=== PATIENT | female | born 1975 | race Asian ===

== ENCOUNTER 2017-05-07 00:55 | Inpatient (IN) | payer BC ==
[~2017-05-07] VITALS: Ht 170.2 cm; Wt 81.6 kg
[2017-05-07] MEDS ORDERED: LR 1,000 ML IV ONE ×2 (02:08→03:06)
[2017-05-07] MEDS ORDERED: CEFAZOLIN 2 GM IVPB PREMIX 50 ML IV ONE ×2 (02:15→02:16)
[2017-05-07] MEDS ORDERED: BUPIVACAINE /DEX PF 0.75% SPINAL 2 ML AMP INJ ONE (02:16)
[2017-05-07] MEDS ORDERED: DEXAMETHASONE SOD PHOSPHATE 4 MG/ML VIAL IVP ONE (02:16)
[2017-05-07] MEDS ORDERED: MORPHINE SULFATE 10MG/10ML PF AMP EP ONE (02:16)
[2017-05-07] MEDS ORDERED: MIDAZOLAM HCL 5 MG/5 ML VIAL IVP ONE (02:16)
[2017-05-07] MEDS ORDERED: METOCLOPRAMIDE HCL 10 MG/2 ML VIAL IVP ONE (02:16)
[2017-05-07] MEDS ORDERED: fentaNYL CITRATE 250 MCG/5 ML AMP IV ONE (02:16)
[2017-05-07] MEDS ORDERED: ceFAZolin SODIUM 1 GM VIAL ONE (02:27)
[2017-05-07 02:34] LABS: HEMATOCRIT 34.8 % (36-48); HEMOGLOBIN 10.7 g/dL (12.0-16.0); MEAN CORPUSCULAR HEMOGLOBIN 21 pg (27-31); MEAN CORPUSCULAR HGB CONC 31 % (32-36); MEAN CORPUSCULAR VOLUME 67 fL (79.0-98.0); PLATELET COUNT (AUTO) 281 K/uL (130-430); RED BLOOD CELL COUNT(AUTO) 5.18 MIL/uL (4.2-6.2); WHITE BLOOD COUNT (AUTO) 8.8 K/uL (4.8-10.8)
[2017-05-07] MEDS ORDERED: OXYTOCIN 10 UNIT/ML VIAL ONE (02:55)
[2017-05-07 03:06] LABS: ATYPICAL LYMPHOCYTES % 0 % (0-0); BAND % (MANUAL) 3 % (0-6); BASOPHILS % (MANUAL) 0 % (0-2); EOSINOPHILS % (MANUAL) 1 % (0-7); LYMPHOCYTES % (MANUAL) 13 % (20-46); MONOCYTES % (MANUAL) 8 % (0-11)
[2017-05-07] MEDS ORDERED: NALOXONE HCL 0.4 MG/ML AMP (NARCAN) IVP PRN (03:15)
[2017-05-07] MEDS ORDERED: KETOROLAC TROMETHAMINE 30 MG VIAL IM PRN (03:15)
[2017-05-07] MEDS ORDERED: DIPHENHYDRAMINE INJ 50 MG/ML VIAL IVP PRN (03:15)
[2017-05-07] MEDS ORDERED: ONDANSETRON HCL 4 MG/2 ML VIAL IVP PRN ×2 (03:15)
[2017-05-07] MEDS ORDERED: ePHEDrine sulfate 50 MG/ML VIAL IVP PRN (03:15)
[2017-05-07] MEDS ORDERED: NALBUPHINE HCL 10 MG/ML AMP IVP PRN (03:15)
[2017-05-07] MEDS ORDERED: fentaNYL CITRATE/PF 100 MCG/2 ML AMP IVP PRN (03:15)
[2017-05-07] MEDS ORDERED: OXYTOCIN/NORMAL SALINE 1,000 ML IV ONE (04:31)
[2017-05-07 07:30] VITALS: BP_SYST 125
[2017-05-07] MEDS ORDERED: OXYCODONE/ACETAMINOPHEN 5-325 TABLET PO PRN ×2 (17:15)
[2017-05-08] MEDS: IBUPROFEN 600 MG TABLET PO PRN ×4 (00:25→18:16)
[2017-05-08 06:39] LABS: BASOPHILS % (AUTO) 0.2 % (0.0-2.0); HEMATOCRIT 27.3 % (36-48); HEMOGLOBIN 8.6 g/dL (12.0-16.0); LYMPHOCYTES % (AUTO) 8.2 % (20.5-51.5); MEAN CORPUSCULAR HEMOGLOBIN 21 pg (27-31); MEAN CORPUSCULAR HGB CONC 32 % (32-36); MEAN CORPUSCULAR VOLUME 66 fL (79.0-98.0); MONOCYTES # (AUTO) 0.8 K/uL (0.0-1.0); NEUTROPHILS # (AUTO) 10.8 K/uL (1.8-7.7); NEUTROPHILS % (AUTO) 85.6 % (40.0-70.0); PLATELET COUNT (AUTO) 218 K/uL (130-430); RED BLOOD CELL COUNT(AUTO) 4.15 MIL/uL (4.2-6.2); RED CELL DISTRIBUTION WIDTH 16.2 % (9.0-15.0); WHITE BLOOD COUNT (AUTO) 12.6 K/uL (4.8-10.8)
[2017-05-08] MEDS: SIMETHICONE 80 MG TAB.CHEW PO PRN ×2 (15:32→18:16)
[2017-05-09] MEDS: IBUPROFEN 600 MG TABLET PO PRN ×3 (00:50→17:56)
[2017-05-09] MEDS ORDERED: CYSTOGRAFIN 300 ML INFUS..BTL UR ONE (08:22)
[2017-05-10] MEDS: IBUPROFEN 600 MG TABLET PO PRN ×2 (05:39→11:56)
[2017-05-10] MEDS ORDERED: MEASLES,MUMPS&RUBELLA VACC/PF 12500 UNIT/0.5 ML VIAL SUBQ PRN (11:15)
== END 2017-05-10 13:55 | disposition home or self-care (01) | DRG 766 ==
LOC: SPU 00:55
PROVIDERS: ADMIT Obstetrics & Gynecology; ATTEND Obstetrics & Gynecology
PROC: 10D00Z1 Extraction of Products of Conception, Low, Open Approach (ICD-10-PCS; principal; 2017-05-07 02:30)
DX: O34.211 Maternal care for low transverse scar from previous cesarean delivery (principal); D25.9 Leiomyoma of uterus, unspecified; O75.5 Delayed delivery after artificial rupture of membranes; N73.6 Female pelvic peritoneal adhesions (postinfective); Z3A.37 37 weeks gestation of pregnancy; Z37.0 Single live birth
CPT/HCPCS: 36415; 74430; 85007; 85025; 85027; 86592; 86886; 86900; 86901; 94760; J0690; J1100; J2250; J2274; J2590; J2765; J3010; J3490; J7120; Q9958

== ENCOUNTER 2017-05-28 12:14 | Outpatient (CLI) | payer BC ==
[2017-05-28] MEDS ORDERED: CYSTOGRAFIN 300 ML INFUS..BTL UR ONE ×2 (12:36→13:13)
== END 2017-05-28 18:04 | disposition home or self-care (01) ==
LOC: SUS 12:14
PROVIDERS: ATTEND Obstetrics & Gynecology
DX: N13.70 Vesicoureteral-reflux, unspecified (principal); N32.9 Bladder disorder, unspecified; D25.9 Leiomyoma of uterus, unspecified
CPT/HCPCS: 74430; 76856; Q9958